=== PATIENT | female | born 1970 | race Caucasian/White ===

== ENCOUNTER → 2017-10-25 | Outpatient (CLI) | payer OTHER ==
[~2017-10-25] MED LIST: DIPH-740 PO; IBUP200C71 PO; IBUP800T37 PO; LACT1CAP62 PO; OXYC-373 PO
--- NOTE | 2017-10-25 17:55 | RADIOLOGY IMAGING REPORT ---
FACILITY: PATIENT NAME: JENARO ZAMAN : [id number] MR: [id number]: [id number] EXAM DATE: [id number] ORDERING PHYSICIAN: OLIVER HOWARD TECHNOLOGIST: Kamille Reyes PROCEDURE:BILATERAL DIGITAL SCREENING MAMMOGRAM WITH CAD ASSISTED INTERPRETATION & 3D TOMOSYNTHESIS COMPARISON:Prior mammograms 10/12/16, 10/08/15, 10/03/14, 10/09/13, 04/10/13, 10/12/12. INDICATIONS:SCREENING FINDINGS: Moderately dense fibroglandular tissue is seen throughout the breasts. The parenchymal pattern has remained stable allowing for difference in mammographic technique & patient positioning. There is no evidence of malignant appearing mass, malignant appearing calcifications or other secondary sign of malignancy in either breast. DIAGNOSTIC CATEGORY 1--NEGATIVE. RECOMMENDATIONS: ROUTINE MAMMOGRAM AND CLINICAL EVALUATION. IMPRESSION: BIRADS 1: Negative. No significant abnormality is seen. Dictated by: Charissa Marroquin M.D. on 10/25/2017 at 11:08 Transcribed by: NATHALY on 10/25/2017 at 11:37 Approved by: Charissa Marroquin M.D. on 10/25/2017 at 17:54 [facility]
== END ==
LOC: MAMO 01:34
PROVIDERS: ATTEND Obstetrics & Gynecology
DX: Z12.31 Encounter for screening mammogram for malignant neoplasm of breast (principal)
CPT/HCPCS: 77063; 77067

== ENCOUNTER → 2018-11-17 | Outpatient (CLI) | payer OTHER ==
[~2018-11-17] MED LIST changes: +IBUP-136 PO; -IBUP200C71 PO
--- NOTE | 2018-11-22 13:50 | RADIOLOGY IMAGING REPORT ---
FACILITY: [facility] PATIENT NAME: JENARO ZAMAN : [id number] MR: [id number] V: [id number] EXAM DATE: [id number] ORDERING PHYSICIAN: MICHELLE HU TECHNOLOGIST: Kamille Reyes PROCEDURE: BILATERAL DIGITAL SCREENING MAMMOGRAM WITH CAD ASSISTED INTERPRETATION & 3D TOMOSYNTHESIS REASON FOR STUDY: Screening. COMPARISON: 10/12/2016 & 10/25/2017. VIEWS OBTAINED: 2D & 3D full field CC & MLO projections. BREAST DENSITY: Demonstrates scattered fibroglandular tissue elements. MAMMOGRAM FINDINGS: There is no suspicious mass, calcification, or architectural distortion. IMPRESSION: BIRADS 1: Negative. DIAGNOSTIC CATEGORY 1--NEGATIVE. RECOMMENDATIONS: ROUTINE MAMMOGRAM AND CLINICAL EVALUATION IN 1YR. Dictated by: Kevon Duffy M.D. on 11/22/2018 at 8:46 Transcribed by: NATHALY on 11/22/2018 at 9:04 Approved by: Kevon Duffy M.D. on 11/22/2018 at 13:46 [facility]
== END ==
LOC: MAMO 03:48
PROVIDERS: ATTEND Obstetrics & Gynecology
DX: Z12.31 Encounter for screening mammogram for malignant neoplasm of breast (principal)
CPT/HCPCS: 77063; 77067